=== PATIENT | male | born 1985 | race Caucasian/White ===

== ENCOUNTER 2019-12-01 17:42 | Emergency (ER) | payer OTHER, SELFPAY ==
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
[2019-12-01 18:44] VITALS: BP 152/92; PULSE 88; RESP 18; TEMP 36.6; O2SAT 100
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
[2019-12-01] MEDS: IBUPROFEN 600 MG TABLET PO (19:46)
[2019-12-01 20:31] VITALS: PULSE 80; RESP 20; O2SAT 99
== END 2019-12-01 20:32 | disposition home or self-care (01) ==
PROVIDERS: Emergency Provider Emergency Medicine
DX: S39.012A Strain of muscle, fascia and tendon of lower back, initial encounter (principal); F17.200 Nicotine dependence, unspecified, uncomplicated; M47.814 Spondylosis without myelopathy or radiculopathy, thoracic region; M47.816 Spondylosis without myelopathy or radiculopathy, lumbar region; V49.40XA Driver injured in collision with unspecified motor vehicles in traffic accident, initial encounter
CPT/HCPCS: 72128; 72131; 96372; 99283; A9270; J3360

== ENCOUNTER 2020-06-30 00:46 | Emergency (ER) | payer OTHER, SELFPAY ==
[2020-06-30] VITALS (8 sets, daily range): BP systolic 121–159; BP diastolic 69–98; PULSE 87–126; RESP 14–19; TEMP 37.5; O2SAT 98–100
--- NOTE | 2020-06-30 00:58 | PC.NURSE ---
Patient states he also has some n/v with 2 episodes of vomiting TECHNOLOGY INTERN.
--- NOTE | 2020-06-30 01:09 | ECG_ITS ---
Measurements Intervals [place] Rate: 126 P: 48 WY: 169 QRS: 35 QRSD: 88 T: 33 QT: 307 QTc: 446 Interpretive Statements SINUS TACHYCARDIA BORDERLINE R WAVE PROGRESSION, ANTERIOR LEADS ABNORMAL ECG Electronically Signed On 06-30-2020 8:02:25 [employer] by Delano Gonzalez D.O.
[2020-06-30 01:30] LABS: Basophils Absolute Auto 0.1 K/mm3 (0.0-0.1); Basophils Percent Auto 1.4 % (0.2-1.2); Eosinophils Absolute Auto 0.5 K/mm3 (0-0.3); Eosinophils Percent Auto 5.7 % (0-4.4); Hematocrit 43.6 % (42.0-52.0); Hemoglobin 14.5 g/dL (14.0-18.0); Immature Granulocyte Absolute 0.02 K/mm3 (0.00-0.031); Immature Granulocyte Percent A 0.2 % (0-0.5); Lymphocytes Percent Auto 27.7 % (18.3-44.2); Mean Corpuscular HGB Conc 33.3 g/dl (32-36); Mean Corpuscular Hemoglobin 30.1 pg (26-34); Mean Corpuscular Volume 90.6 fl (80-100); Mean Platelet Volume 9.4 fl (7.4-10.4); Monocytes Absolute Auto 0.6 K/mm3 (0.1-0.6); Neutrophils Absolute Auto 5.2 K/mm3 (1.3-6.7); Platelet Count Result 194 k/mm3 (150-375); Red Blood Count 4.81 M/mm3 (4.6-6.20); Red Cell Distribution Width 12.2 % (11.5-14.5)
[2020-06-30] MEDS: SODIUM CHLORIDE 0.9% IV 1,000 ML 999 ML IV CONT (01:30)
[2020-06-30 01:39] LABS: Anion Gap 4 mmol/L (8-16); Blood Urea Nitrogen 16 mg/dL (9-20); Calcium 8.9 mg/dL (8.4-10.2); Carbon Dioxide 28 mmol/L (22-30); Chloride 107 mmol/L (98-107); Estimated CRCL calculation 89 ml/min; Estimated Glomerular Filt Rate > 60; Glucose 127 mg/dL (75-110); Potassium 3.9 mmol/L (3.4-5.0); Sodium 139 mmol/L (137-145)
--- NOTE | 2020-06-30 01:59 | ED.ARRPALP ---
HPI - Arrhythmia/Palpitations General Chief Complaint: Arrhythmia/Palpitations Stated Complaint: heart racing Time Seen by Provider: 06/30/20 00:51 History of Present Illness HPI narrative: Patient is a 34-year-old male who presents ER with heart palpitations. Reports he took a THC gummy this evening as makes him feel anxious. Similar symptoms occurred last week when he had taken a similar gummy. No chest pain or chest pressure. No alleviating factors. He has no fevers or chills or sweats or productive cough. He has not ingested any other medications. Reports he is taking them to try to go to sleep. Related Data Allergies Allergy/AdvReac Type Severity Reaction Status Date / Time No Known Allergies Allergy Verified 06/30/20 00:47 Review of Systems Review of Systems: All systems reviewed & are unremarkable except as noted in HPI and below Constitutional: Constitutional: Denies fever(s) and Denies weakness Cardiovascular: Cardiovascular: Denies chest pain, Reports rapid heart rate and Denies radiating jaw, neck or arm pain Respiratory: Respiratory: Denies cough, Denies dyspnea and Denies wheezing Gastrointestinal: Gastrointestinal: Denies abdominal pain, Denies nausea and Denies vomiting Psychiatric: Psychiatric: Reports anxiety PMFSH Past Medical History Medical History (Updated 06/30/20 @ 02:05 by Johnnie Garcia MD) No active medical problems Surgical History Surgical History (Updated 06/30/20 @ 02:00 by Johnnie Garcia MD) No pertinent past surgical history Social History Social History (Updated 12/01/19 @ 19:32 by Sruthi Gipson PA-C) Smoking status: Current every day smoker Gender identity (if verbalized by the patient): Male Exam Narrative: Exam Narrative: GENERAL: Well-appearing, well-nourished, and in no acute distress. HEAD: Normocephalic, atraumatic. CHEST: Clear to auscultation. No respiratory distress. HEART: Tachycardic and regular. Normal peripheral pulses. ABDOMEN: Soft, nontender, nondistended. EXTREMITIES: Normal range of motion. No edema. SKIN: Warm, dry, no rash. NEURO: Alert and oriented x3. PSYCH: Normal mood and affect. Course Course Emergency Course: Heart rate down into the 80s after liter fluid and time. Discharge home. Vital Signs Vital signs: Vital Signs Temperature 99.5 F 06/30/20 00:52 Pulse Rate 126 H 06/30/20 00:52 Respiratory Rate 14 06/30/20 00:52 Blood Pressure 159/98 H 06/30/20 00:52 Pulse Oximetry 100 06/30/20 00:52 Temperature 99.5 F 06/30/20 00:52 Pulse Rate 96 06/30/20 01:45 Respiratory Rate 19 06/30/20 01:32 Blood Pressure 137/77 06/30/20 01:31 Pulse Oximetry 100 06/30/20 00:52 MDM - Arrhythmia/Palpitations Lab Data Result diagrams: 06/30/20 01:22 06/30/20 01:22 Labs: Lab Results 06/30/20 06/30/20 Range/Units 01:22 01:22 WBC 9.0 (4.5-10.0) K/mm3 RBC 4.81 (4.6-6.20) M/mm3 Hgb 14.5 (14.0-18.0) g/dL Hct 43.6 (42.0-52.0) % MCV 90.6 (80-100) fl MCH 30.1 (26-34) pg MCHC 33.3 (32-36) g/dl RDW 12.2 (11.5-14.5) % Plt Count 194 (150-375) k/mm3 MPV 9.4 (7.4-10.4) fl Immature Gran % (Auto) 0.2 (0-0.5) % Neut % (Auto) 58.0 (45.5-73.1) % Lymph % (Auto) 27.7 (18.3-44.2) % [place] % (Auto) 7.0 (2.6-8.5) % Eos % (Auto) 5.7 H (0-4.4) % Baso % (Auto) 1.4 H (0.2-1.2) % Lymph # (Auto) 2.50 (0.9-3.2) K/mm3 [place] # (Auto) 0.6 (0.1-0.6) K/mm3 Eos # (Auto) 0.5 H (0-0.3) K/mm3 Baso # (Auto) 0.1 (0.0-0.1) K/mm3 Abs Immat Gran (auto) 0.02 (0.00-0.031) K/mm3 Absolute Neuts (auto) 5.2 (1.3-6.7) K/mm3 Absolute Nucleated RBC 0.0 (0.0-0.012) K/mm3 Nucleated RBC % 0.0 (0.0-0.2) % Sodium 139 (137-145) mmol/L Potassium 3.9 (3.4-5.0) mmol/L Chloride 107 (98-107) mmol/L Carbon Dioxide 28 (22-30) mmol/L Anion Gap 4 L (8-16) mmol/L BUN 16 (9-20) mg/dL Creatinine 1.20 (0.7-1
== END 2020-06-30 02:28 | disposition home or self-care (01) ==
PROVIDERS: Emergency Provider Emergency Medicine
DX: R00.2 Palpitations (principal); F17.200 Nicotine dependence, unspecified, uncomplicated; R00.0 Tachycardia, unspecified
CPT/HCPCS: 36415; 80048; 85025; 93005; 96360; 99283; J7030